=== PATIENT | female | born 1995 | race Caucasian/White ===

== ENCOUNTER 2020-06-22 14:55 | Outpatient (RCR) | payer OTHER, SELFPAY ==
[2020-06-04 15:08] VITALS: BP 101/55; PULSE 101
[2020-06-10 16:38] VITALS: BP 113/57; PULSE 92
[2020-06-22 15:23] VITALS: BP 108/66; PULSE 103
== END 2020-07-22 07:38 | disposition home or self-care (01) ==
LOC: ANHOBOP 14:55
PROVIDERS: PCP Family Medicine; Visit Provider Obstetrics & Gynecology
DX: O24.419 Gestational diabetes mellitus in pregnancy, unspecified control (principal); O09.293 Supervision of pregnancy with other poor reproductive or obstetric history, third trimester; Z3A.32 32 weeks gestation of pregnancy; Z3A.33 33 weeks gestation of pregnancy; Z3A.35 35 weeks gestation of pregnancy
CPT/HCPCS: 59025

== ENCOUNTER 2020-07-18 09:05 | Outpatient (CLI) | payer OTHER, SELFPAY ==
[2020-07-18 09:41] LABS: Hematocrit 35.5 % (37.0-47.0); Hemoglobin 11.8 g/dL (12.0-15.0); Immature Platelet Fraction Pct 8.2 % (0.9-11.2); Mean Corpuscular HGB Conc 33.2 g/dl (32-36); Mean Corpuscular Hemoglobin 27.8 pg (26-34); Mean Corpuscular Volume 83.5 fl (80-100); Mean Platelet Volume 11.8 fl (7.4-10.4); Platelet Count Result 113 k/mm3 (150-375); Red Blood Count 4.25 M/mm3 (4.2-5.4); Red Cell Distribution Width 13.4 % (11.5-14.5); White Blood Count 7.2 K/mm3 (4.5-10.0)
[2020-07-19 14:22] LABS: Rapid Plasma Reagin Non-Reactive (NonReactive)
== END 2020-07-18 09:06 | disposition home or self-care (01) ==
PROVIDERS: PCP Family Medicine; Visit Provider Obstetrics & Gynecology
DX: Z01.812 Encounter for preprocedural laboratory examination (principal)
CPT/HCPCS: 36415; 85027; 85055; 86592; 86900; 86901

== ENCOUNTER 2020-07-19 05:31 | Inpatient (IN) | payer OTHER, SELFPAY ==
--- NOTE | 2020-07-03 15:16 | PC.NURSE ---
VERIFIED WITH OR SCHEDULE AND PATIENT--C/S WITH TUBAL LIGATION ON 07/19 AT 0730 PATIENT INSTRUCTED TO HAVE PRE-OP LABS DRAWN THE DAY BEFORE SURGERY PATIENT INSTRUCTED NOTHING TO EAT OR DRINK AFTER MIDNIGHT THE NIGHT BEFORE SURGERY AND TO BE IN OB 2 HOURS BEFORE SURGERY--PATIENT VERBALIZED HER UNDERSTANDING
[2020-07-19] VITALS (24 sets, daily range): BP systolic 79–114; BP diastolic 43–78; PULSE 69–105; RESP 12–16; TEMP 36.1–36.8; O2SAT 99–100; BMI 34.2
[2020-07-19] MEDS: LACTATED RINGERS 1,000 ML 125 ML IV CONT ×2 (06:01→06:44)
--- NOTE | 2020-07-19 06:24 | LDADM ---
This patient, Ashley Rodney, was admitted to Labor/Delivery/Recovery 120 on 07/19/20 at 05:31. Plans for labor, pain management and were discussed with patient. Patient/family oriented to hospital policies and general routines including ID bracelet, bed and alarms, visiting hours, pain management, procedures, bathroom and other care routines, personal items, smoking policy, room service/diet and guest tray routines, security routines, and visiting hours. Patient/Family are encouraged to report perceived risks to care and to ask questions if they do not understand what they are told or what they should do. See OBIX for further documentation.
--- NOTE | 2020-07-19 06:54 | WPDANESEPPF ---
Anes - Initial Pre Proc Eval Procedure: Operation Date: 07/19/20 07:30 Proposed Procedures p Repeat Section With Bilateral Tubal Ligation - Donaldo Castellanos MD Date/Time: 07/19/20 06:54 Surgeon: Donaldo Castellanos MD Pre Op Diagnosis: Repeat Patient Data Age: 25 Gender: F Height: 5 ft 2 in Weight: 85 kg Last Vital Signs Pulse 105 H 07/19/20 06:16 BP 100/67 07/19/20 06:16 Allergies Allergy/AdvReac Type Severity Reaction Status Date / Time No Known Allergies Allergy Verified 07/03/20 15:02 Home Medications Medication Instructions Recorded Confirmed Type PNV cmb#95-ferrous fumarate-FA 1 tablet PO DAILY 06/22/20 07/19/20 History [] aspirin [Aspir-81] 162 mg PO DAILY 06/22/20 07/19/20 History insulin NPH isoph U-100 human 14 unit SUBCUT HS 06/22/20 07/19/20 History [Humulin N NPH U-100 Insulin] Patient hx anesthesia problems: none Family hx anesthesia problems: none PMFSH Past Medical History Medical History (Updated 07/19/20 @ 06:54 by Rasta Vora MD) Gestational diabetes Obesity Family History Family History Grandparent Diabetes mellitus Social History Social History Smoking status: Never smoker Substance use: never Spiritual care concerns: No Anes - Eval Final PreProcedure Day of Procedure 07/19/20 06:54 Patient weight: obese Heart: regular rate and rhythm Lungs: clear to auscultation Airway: Mallampati scale class II Neurological: alert and oriented Last oral intake: >/= 8 hours ASA classification: III Emergent: no Anesthetic plan: proceed Anesthesia type and monitoring: regional spinal and standard monitoring Informed Consent: The patient's anesthetic plan and its attendant risks and benefits were discussed with the patient/family/POA. Questions were solicited and answers provided to the satisfaction of the patient/family/POA.
--- NOTE | 2020-07-19 07:10 | PM.IMHP ---
H&P: HPI History of Present Illness Date/Time: 07/19/20 07:10 25-year-old 3 para 04/05/2000 presents at 39 weeks for repeat delivery. has been complicated by gestational diabetes for which she take insulin at night otherwise no issues. Also desires permanent sterilization which we have discussed regarding her tubal ligation the permanence failure rate increase risk of ectopic and regret she states good understanding and desires to proceed. Chief Complaint: Review of Systems Review of Systems: All systems reviewed & are unremarkable except as noted in HPI and below PMFSH Past Medical History Medical History Gestational diabetes Obesity Family History Family History Grandparent Diabetes mellitus Social History Social History Smoking status: Never smoker Substance use: never Spiritual care concerns: No Meds Home Medications and Allergies Home Medications Medication Instructions Recorded Confirmed Type PNV cmb#95-ferrous fumarate-FA 1 tablet PO DAILY 06/22/20 07/19/20 History [] aspirin [Aspir-81] 162 mg PO DAILY 06/22/20 07/19/20 History insulin NPH isoph U-100 human 14 unit SUBCUT HS 06/22/20 07/19/20 History [Humulin N NPH U-100 Insulin] Allergies Allergy/AdvReac Type Severity Reaction Status Date / Time No Known Allergies Allergy Verified 07/03/20 15:02 Vital Signs Vital Signs - 24 hr 07/19/20 05:56 07/19/20 06:02 07/19/20 06:16 Pulse Rate 91 86 105 H Blood Pressure 102/71 103/78 100/67 Exam Const: General: cooperative and healthy appearing Resp: Effort & Inspection: normal respiratory effort Auscultation: clear to auscultation bilaterally Cardio: Rate: regular rate Rhythm: regular rhythm GI: Auscultation: normal bowel sounds : Bimanual exam- vagina & uterus: enlarged ( Fundal height 40cm heart tones 140) Assessment and Plan Assessment and plan (1) 39 weeks gestation of : Code(s): Z3A.39 - 39 weeks gestation of Status: Acute (2) Previous delivery affecting : Code(s): O34.219 - Maternal care for unspecified type scar from previous delivery Status: Acute (3) Gestational diabetes: Code(s): O24.419 - Gestational diabetes mellitus in , unspecified control Status: Acute (4) Encounter for female sterilization procedure: Code(s): Z30.2 - Encounter for sterilization Status: Acute Additional Plan 1. Proceed with low-transverse section 2. Proceed with bilateral tubal ligation.
--- NOTE | 2020-07-19 07:13 | WPDHPUPDATE1 ---
History and Physical Update Update Date/Time: 07/19/20 07:13 History and Physical has been reviewed, including an updated exam of the patient. There are NO changes in the patient's condition. Risks, benefits, and alternatives have been discussed and questions answered. Patient agrees to proceed with procedure.
--- NOTE | 2020-07-19 08:14 | PM.OBPRVD ---
OB - Delivery Note Procedure Procedure: Procedures Operation Date: 07/19/20 07:30 <No data on this case meets the specified criteria> events: Gestational Diabetes Route of delivery: ( with bilateral tubal ligation) Specimen: Yes Quantitative Blood Loss (ml): 395 Anesthesia type: Spinal Disposition: PACU Narrative: patient prepped and draped in usual manner for this procedure. Pfannenstiel incision was made which was carried down to fascia which was then extended bilaterally the length of the skin incision. Superiorly and inferiorly dissected away from the rectus muscles and the peritoneum was readily entered. Bladder flap was developed uterus was scored and vertex was delivered with nuchal cord noted and reduced. Rest of baby was delivered without difficulty cord clamped cut and placenta removed manually. Uterus was cleared of membranes and clots and closed using 0 Monocryl in a running interlocking manner. Uterine incision was hemostatic uterus then was firm as well. Bilaterally the tubes were grasped Ely clamp doubly ligated and the portion of the tube was removed. Uterus was returned to the abdomen gutters were cleared of serosanguineous fluid and clots and the tubal segments were noted and were intact and hemostatic. Fascia was approximated using 0 Vicryl from left angle midline right angle to midline with good approximation hemostasis noted. Subcutaneous tissue approximated 0 plain suture and artur used to approximate the skin edges with good approximation and hemostasis noted. This point seizure was considered terminated with immediate postoperative condition of mother and baby both excellent. [place] Baby Weeks of gestation at delivery: 39 Infant gender: Female Weight (pounds): 8 Weight (ounces): 8 score one minute: 9 score five minutes: 9
--- NOTE | 2020-07-19 12:25 | PC.NURSE ---
Mother called out for assist with feeding. Consulted with patient, mother reports she breast and bottle fed last infant and plans the same for this . Mother will put infant to breast each feeding then supplement after. Once mother's milk is well established she will also pump and bottle feed. Discussed stimulation/empting of breast and milk supply. Reviewed nipple care of lanolin. Reviewed infant feeding cues, frequencies, duration of feedings, feeding elimination flow sheet, and signs of adequate intake. Demonstrated stimulation techniques to wake for feeding. Assisted with infant to breast. Reviewed positioning/alignment in cross cradle, holding breast in U hold and guided asymmetrical latch on. was able to latch within a few attempts. Infant nursed eagerly, with steady draws and frequent swallowing noted. Reviewed signs of a correct latch, effective nursing and suck swallow ratio. was able to maintain latch. Mother reported tenderness at times, had slipped to shallow latch. Demonstrated how to adjust latch more deeply while feeding. Mother quickly reports she can feel is latched more deeply and has minimal tenderness. has nasal congestion and is on and off during feeding, reporting to primary RN. Suggested to stimulate infant while feeding to keep infant awake and nursing effectively for increased stimulation and increased intake. Instructed mother to call out for RN assistance if she is unable to latch infant for feeding or she has discomfort with nursing.
[2020-07-19] MEDS: HYDROcodone/acetaminophen (*CRX) 5-325 MG TABLET 1 TAB PO (14:17)
[2020-07-19] MEDS: SIMETHICONE 80 MG TAB.CHEW PO ×2 (14:18→21:11)
[2020-07-19] MEDS: IBUPROFEN 600 MG TABLET PO ×2 (14:18→21:11)
[2020-07-20] VITALS (7 sets, daily range): BP systolic 90–121; BP diastolic 57–68; PULSE 78–106; RESP 16–18; TEMP 36.2–36.8; O2SAT 95–98
[2020-07-20] MEDS: HYDROcodone/acetaminophen (*CRX) 5-325 MG TABLET 1 TAB PO ×2 (02:23→10:10)
[2020-07-20 06:23] LABS: Basophils Percent Auto 0.4 % (0.2-1.2); Eosinophils Absolute Auto 0.1 K/mm3 (0-0.3); Eosinophils Percent Auto 1.7 % (0-4.4); Hematocrit 34.1 % (37.0-47.0); Hemoglobin 11.3 g/dL (12.0-15.0); Immature Granulocyte Absolute 0.03 K/mm3 (0.00-0.031); Immature Granulocyte Percent A 0.4 % (0-0.5); Immature Platelet Fraction Pct 8.4 % (0.9-11.2); Lymphocytes Absolute Auto 1.09 K/mm3 (0.9-3.2); Lymphocytes Percent Auto 13.2 % (18.3-44.2); Mean Corpuscular HGB Conc 33.1 g/dl (32-36); Mean Corpuscular Hemoglobin 28.3 pg (26-34); Mean Corpuscular Volume 85.3 fl (80-100); Mean Platelet Volume 11.9 fl (7.4-10.4); Monocytes Absolute Auto 0.7 K/mm3 (0.1-0.6); Monocytes Percent Auto 8.7 % (2.6-8.5); Neutrophils Absolute Auto 6.2 K/mm3 (1.3-6.7); Neutrophils Percent Auto 75.6 % (45.5-73.1); Platelet Count Result 114 k/mm3 (150-375); Red Cell Distribution Width 13.3 % (11.5-14.5); White Blood Count 8.3 K/mm3 (4.5-10.0)
--- NOTE | 2020-07-20 06:43 | P.DS_ITS ---
DS: Admitting Diagnosis Admitting Diagnosis Admitting Diagnosis: DS: Discharge Diagnosis Discharge Diagnosis (1) Previous delivery affecting : Code(s): O34.219 - Maternal care for unspecified type scar from previous delivery Status: Acute OB - DS: Summary OB Procedures : NST and Ultrasound OB Procedures Intrapartum: and Tubal ligation OB Procedures: : None Peripartum Data Procedures: Procedures Operation Date: 07/19/20 07:30 Actual Procedures Side Surgeon p Repeat Section With Bilateral Tubal Ligation Not Applicable Donaldo Castellanos MD Time Spent with Patient Time attestation: Total time spent providing and/or coordinating discharge services: DS: Data Data Completed and Pending Pending studies at discharge: Pending at discharge 07/19/20 07:53 Surgical [PTH] Routine Surgical [PTH] Routine Labs on day of discharge: Labs from last 24 hours 07/20/20 05:54 WBC 8.3 RBC 4.00 L Hgb 11.3 L Hct 34.1 L MCV 85.3 MCH 28.3 MCHC 33.1 RDW 13.3 Plt Count 114 L MPV 11.9 H Immature Gran % (Auto) 0.4 Neut % (Auto) 75.6 H Lymph % (Auto) 13.2 L Harney % (Auto) 8.7 H Eos % (Auto) 1.7 Baso % (Auto) 0.4 Lymph # (Auto) 1.09 Harney # (Auto) 0.7 H Eos # (Auto) 0.1 Baso # (Auto) 0.0 Abs Immat Gran (auto) 0.03 Absolute Neuts (auto) 6.2 Absolute Nucleated RBC 0.0 Nucleated RBC % 0.0 % Immature Plt Fraction 8.4 Discharge Plan Discharge Discharging Clinician: Donaldo Castellanos Anticipated Discharge Date/Time: 07/21/20 09:43 Patient Disposition: Home, Self-Care Activity: as tolerated Diet: as tolerated Wound Care Instructions: incision open to air Discharge Instructions: office staple removal wednesday (ok to remove wednesday if hospital visit that day) Patient Instructions: Antibiotic Form Stand Alone Forms: General Discharge Information Follow-up/Referrals: Donaldo Castellanos MD [Physician] - 3 Weeks Discharge Medications: New hydrocodone-acetaminophen 5-325 mg Tablet 1 tablet PO Q6H PRN (Reason: Moderate Pain (4-6)) Qty: 20 RF: 0 ibuprofen 600 mg Tablet 600 mg PO Q6H PRN (Reason: Cramping) Qty: 30 RF: 0 Continued PNV cmb#95-ferrous fumarate-FA [] 28 mg iron- 800 mcg Tablet 1 tablet PO DAILY RF: 0 Discontinued aspirin [Aspir-81] 81 mg Tablet,Delayed Release (Dr/Ec) 162 mg PO DAILY RF: 0 Humulin N NPH U-100 Insulin 100 unit/mL Suspension 14 unit SUBCUT HS RF: 0 Date of admission: 07/19/20 05:31 Primary Care Provider: Sukhjinder,[facility] Admitting Provider: Donaldo Castelalnos Attending physician on admission: Donaldo Castellanos Condition: Stable
[2020-07-20] MEDS: IBUPROFEN 600 MG TABLET PO ×2 (10:09→17:32)
[2020-07-20] MEDS: MULTIVIT/MIN/PREN/FOL AC/IRON TABLET 1 TAB PO (10:10)
[2020-07-20] MEDS: SIMETHICONE 80 MG TAB.CHEW PO ×2 (10:10→16:03)
[2020-07-20] MEDS: DOCUSATE SODIUM 100 MG CAPSULE PO ×2 (10:10→16:03)
--- NOTE | 2020-07-20 10:34 | WPDANLDPN2 ---
Anes-Prog Note L&D Date/Time: 07/20/20 10:34 Comfortable throughout: section Neuraxial method: spinal Epidural/Spinal procedure site: clean & non-tender Neuro status: Neuro function grossly intact. Cardiovascular status: normal Respiratory status: normal Airway patency: baseline Mental status: baseline Post-Op hydration status: normal Vital Signs: Last Vital Signs Temp 36.6 C 07/20/20 05:45 Pulse 78 07/20/20 05:45 Resp 16 07/20/20 05:45 BP 99/62 L 07/20/20 05:45 Pulse Ox 96 07/20/20 05:45 Pain score (VAS): 0 I/O: Intake & Output 07/19/20 07/20/20 07/20/20 23:59 07:59 15:59 Intake Total 1640 740 Output Total 1100 825 Balance 540 -85 Post-procedural complaints: none Patient feedback: Patient satisfied with anesthetic care.
--- NOTE | 2020-07-20 10:34 | WPDANLDNPN2 ---
Anes-Prog Note L&D-Neuraxial Date/Time: 07/20/20 10:34 Neuraxial medications: intrathecal PF morphine Opiod-related complaints: none Patient feedback: Patient satisfied with post-operative pain management.
--- NOTE | 2020-07-21 03:03 | PC.NURSE ---
07/21/2020 at 2330. When I took baby back out to mother I asked her if she would like something for pain. Ashley replied, No, I just want to get some sleep. I asked the patient to call out if she needs something for pain or assistance of any kind. Ashley stated understanding. Ashley has not called out for pain medication or assistance up to this time.
--- NOTE | 2020-07-21 06:34 | PC.NURSE ---
07/21/2020 at 0530 Patient viewed the discharge video Mother & Baby Care, The First Two Weeks . Patient was given the opportunity and encouraged to ask questions. Patient verbalized understanding of information shared and has been given the mother/baby guide for home reference.
[2020-07-21] MEDS: IBUPROFEN 600 MG TABLET PO (07:07)
[2020-07-21] MEDS: HYDROcodone/acetaminophen (*CRX) 5-325 MG TABLET 1 TAB PO (07:07)
[2020-07-21] MEDS: MULTIVIT/MIN/PREN/FOL AC/IRON TABLET 1 TAB PO (07:08)
[2020-07-21] MEDS: DOCUSATE SODIUM 100 MG CAPSULE PO (07:09)
[2020-07-21] MEDS: SIMETHICONE 80 MG TAB.CHEW PO (07:09)
[2020-07-21 08:00] VITALS: BP 121/68; PULSE 104; RESP 18; TEMP 36.6
--- NOTE | 2020-07-21 08:00 | PC.NURSE ---
Assessment done on 07/20/20 at 0800 by Jana Rodgers was wrong date. Assessments done on 05/23/20 at 0800 per Jana Rodgers RN. Pt. doing well. Anxious for discharge. FOB at side.
--- NOTE | 2020-07-21 08:37 | PC.NURSE ---
Self care and infant care discharge instructions given to pt. including follow up visit date and time. Pt. verbalized understanding. No questions or concerns voiced. Very pleasant and cooperative.
--- NOTE | 2020-07-21 09:17 | PC.NURSE ---
Pt. discharged with staple remover and instructed to take with her when she sees Dr. Castellanos this Wednesday. Pt. verbalized understanding.
[2020-07-22 10:34] VITALS: BP 111/68; PULSE 98; RESP 20; TEMP 36.4; O2SAT 98
--- NOTE | 2020-07-27 09:00 | PM.OBDSVD ---
DS: Admitting Diagnosis Admitting Diagnosis Admitting Diagnosis: OB - DS: Summary OB Procedures : None OB Procedures Intrapartum: and Tubal ligation OB Procedures: : None Peripartum Data Procedures: Procedures Operation Date: 07/19/20 07:30 Actual Procedures Side Surgeon p Repeat Section With Bilateral Tubal Ligation Not Applicable Donaldo Castellanos MD Time Spent with Patient Time attestation: Total time spent providing and/or coordinating discharge services: DS: Data Data Completed and Pending Completed studies during hospitalization: Pending at discharge 07/19/20 07:53 Surgical [PTH] Routine Surgical [PTH] Routine Discharge Plan Discharge Consulting providers: Rasta Vora Discharging Clinician: Donaldo Castellanos Anticipated Discharge Date/Time: 07/21/20 09:43 Patient Disposition: Home, Self-Care Activity: as tolerated Diet: as tolerated Wound Care Instructions: incision open to air Discharge Instructions: office staple removal wednesday (ok to remove wednesday if hospital visit that day) Education: Mom and Baby Guide Given to: Mother Follow-Up: Call your delivering provider's office for an appointment to be seen in: Return to office July 24 for staple removal. Mom and baby [facility] for the follow-up appointment. Appointment Date/Time: Wednesday July 22, 2020 at 11:00 am What to expect at your follow-up visit: Blood Pressure Check Physical Assessment Call [phone] if you are unable to keep your appointment time. BREAST CARE: * Wear a snug supportive bra. * For engorgement discomfort: Breast Feeding: * Apply warm moist washcloths * Express milk as needed to relieve engorgement * Wear loose clothing Bottle Feeding: * May apply ice packs * For sore nipples: * Identify correct latch-on * Apply warm moist washcloths before and after nursing * Air dry nipples after nursing * May apply Lansinoh cream to nipples ABDOMINAL INCISION: (if applicable) * Allow incision to air dry * Do NOT use lotions for powders on your incision * When showering, allow soap and water to run over the incision, but do not wash incision * Until bleeding stops, use your jennifer bottle after urinating * Change your pad frequently throughout the day ACTIVITY: * Rest as much as possible. * Do not exercise or lift anything heavier than your baby (such as laundry or other children.) * Avoid stairs or driving as much as possible. * Do not put anything into the vagina. No douching, tampons, or sexual activity until seen by physician. NOTIFY PHYSICIAN IF YOU HAVE ANY QUESTIONS OR IF ANY OF THE FOLLOWING SYMPTOMS OCCUR: * If your incision becomes red, swollen, or more painful than what you have experienced in the hospital. * If your vaginal bleeding becomes foul smelling. * If your vaginal bleeding becomes more heavy than a period or if your bleeding changes from pink to bright red. However, you may pass an occasional walnut-sized clot once or twice for the first week . * If you experience a sharp, shooting pain in you calves. * If you discover a hard, reddened area on your breast or if you experience flu-like symptoms. DIET: * Eat regular, well-balanced meals. * Drink plenty of fluids daily. If , drink to thirst. Patient Instructions: Antibiotic Form Stand Alone Forms: General Discharge Information Follow-up/Referrals: Donaldo Castellanos MD [Physician] - 3 Weeks Discharge Medications: New hydrocodone-acetaminophen 5-325 mg Tablet 1 tablet PO Q6H PRN (Reason: Moderate Pain (4-6)) Qty: 20 RF: 0 ibuprofen 600 mg Tablet 600 mg PO Q6H PRN (Reason: Cramping) Qty: 30 RF: 0 Continued PNV cmb#95-ferrous fumarate-FA [] 28 mg iron- 800 mcg Tab
== END 2020-07-21 10:03 | disposition home or self-care (01) | DRG 785 ==
LOC: ANHLDR 05:36 → ANHOB2 11:19
PROVIDERS: Admitting Provider Obstetrics & Gynecology; PCP Family Medicine; Visit Provider Obstetrics & Gynecology
PROC: 10D00Z1 Extraction of Products of Conception, Low, Open Approach (ICD-10-PCS; CPT 59514; principal; 2020-07-19 07:30)
DX: O34.211 Maternal care for low transverse scar from previous cesarean delivery (principal); O24.424 Gestational diabetes mellitus in childbirth, insulin controlled; Z3A.39 39 weeks gestation of pregnancy; Z37.0 Single live birth; Z30.2 Encounter for sterilization
CPT/HCPCS: 36415; 85025; 85055; 88302; 88307; A9270; J0131; J2274; J2370; J2405; J2590; J7120

== ENCOUNTER 2023-02-13 08:42 | Emergency (ER) | payer OTHER, SELFPAY ==
[2023-02-13 08:55] VITALS: BP 113/70; PULSE 88; RESP 16; TEMP 36.7; O2SAT 100
--- NOTE | 2023-02-13 09:19 | ED.EYEPROB ---
HPI - Eye Problem General Chief complaint: Eye Problems Stated complaint: Eyes Irritation Time Seen by Provider: 02/13/23 09:14 Source: patient and RN notes reviewed Mode of arrival: ambulatory Limitations: no limitations History of Present Illness HPI Narrative: Patient presents today complaining of discharge from bilateral eye since last night with burning and crusting this morning. Denies vision changes, foreign body sensation. She does not wear contacts. She has tried no [id number] interventions prior to arrival. Denies recent illness. Related Data Allergies Allergy/AdvReac Type Severity Reaction Status Date / Time No Known Allergies Allergy Verified 12/21/22 15:11 Review of Systems Review of Systems: CONSTITUTIONAL: Denies body aches, fever, chills, or sweats. EYES: Denies visual changes. + bilateral eye redness, burning, drainage ENT: Denies rhinorrhea, congestion, sore throat, or otalgia. CARDIOVASCULAR: Denies chest pain, palpitations, or edema. RESPIRATORY: Denies cough or dyspnea. GASTROINTESTINAL: Denies abdominal pain, nausea, vomiting, or diarrhea. GENITOURINARY: Denies dysuria or hematuria. SKIN: Denies rash, itching, or wounds. MUSCULOSKELETAL: Denies back pain, joint pain, or myalgia. NEUROLOGIC: Denies headache, numbness, tingling, or weakness. PSYCH: Denies depression or anxiety. [facility] Past Medical History Medical History Abnormal Pap smear of cervix 02/16/2017 ascus -hpv Anxiety Asthma Bipolar 1 disorder Depression Gestational diabetes Gestational diabetes History of demise, not currently @ 37 weeks Obesity Surgical History Surgical History H/O tubal ligation (07/19/20) History of 12/04/16 primary elective c/s--prior shoulder dystocia 07/19/20 rpt c/s History of tonsillectomy 05/19/18 Family History Family History Grandparent Diabetes mellitus paternal grandfather paternal grandmother Malignant neoplasm of prostate maternal grandfatehr Neoplasm of bone marrow maternal grandfather Sibling Leukemia sister 2x Father Alcohol abuse Social History Social History Smoking status: Never smoker Second hand tobacco smoke exposure: No Alcohol intake: current Alcohol use details: 1 a month ? 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 Please see nursing chart for further information. There is no relevant family history pertinent to the presenting complaint Exam Narrative: GENERAL: Well-appearing, well-nourished, and in no acute distress. HEAD: Normocephalic, atraumatic. EYES: EOMI. PERRL. Moderate bilateral injected conjunctiva. No current active drainage. Lids and lashes normal. ENT: Mucous membranes pink and moist. NECK: Normal AROM. CHEST: No respiratory distress. EXTREMITIES: Normal range of motion. No edema. SKIN: Warm, dry, no rash.
== END 2023-02-13 09:32 | disposition home or self-care (01) ==
PROVIDERS: Emergency Provider Nurse Practitioner; PCP Family Medicine
DX: H10.89 Other conjunctivitis (principal)
CPT/HCPCS: 99213; G0463

== ENCOUNTER 2023-03-18 18:44 | Emergency (ER) | payer OTHER, SELFPAY ==
--- NOTE | 2023-03-18 18:45 | ED.URI ---
HPI - URI/Sore Throat General Chief Complaint: Upper Respiratory Infection Stated Complaint: Bodyaches Time Seen by Provider: 03/18/23 18:45 Source: patient Mode of arrival: ambulatory Limitations: no limitations History of Present Illness HPI Narrative: Bárbara is a 27-year-old female patient presenting to the clinic today with complaints of body aches, cough, and nasal congestion days. Symptoms started on Wednesday morning. Son is positive for influenza B. MD elicited complaint: cough, nasal congestion and other (Body aches) Related Data Allergies Allergy/AdvReac Type Severity Reaction Status Date / Time No Known Allergies Allergy Verified 03/18/23 18:57 Review of Systems Review of Systems: Pertinent positives per HPI. Patient denies any fever, chills, rash, headache, visual changes, dizziness, cough, shortness of breath, chest pain, palpitations, nausea, vomiting, diarrhea, constipation, abdominal pain, or any urinary issues. [facility] Past Medical History Medical History Abnormal Pap smear of cervix 02/16/2017 ascus -hpv Anxiety Asthma Bipolar 1 disorder Depression Gestational diabetes Gestational diabetes History of demise, not currently @ 37 weeks Obesity Surgical History Surgical History H/O tubal ligation (07/19/20) History of 12/04/16 primary elective c/s--prior shoulder dystocia 07/19/20 rpt c/s History of tonsillectomy 05/19/18 Family History Family History Grandparent Diabetes mellitus paternal grandfather paternal grandmother Malignant neoplasm of prostate maternal grandfatehr Neoplasm of bone marrow maternal grandfather Sibling Leukemia sister 2x Father Alcohol abuse Social History Social History Smoking status: Never smoker Second hand tobacco smoke exposure: No Alcohol intake: current Alcohol use details: 1 a month ? 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 There is no relevant family history pertinent to the patient complaint. Exam Narrative: General: Well-developed, well nourished, in no apparent distress Head: Normocephalic, atraumatic Eyes: Pupils equally round and reactive to light bilaterally, EOM intact, sclera and conjunctive clear, no discharge, lids normal Ears: TMs intact and clear, ear canals clear, no drainage, grossly hearing normal. Nose: Nares patent, clear nasal discharge, no inflammation, no sinus tenderness. Mouth: Oral pharynx without lesions or masses, good dentition, MMM. Neck: Supple, trachea midline, no enlargement of anterior or posterior cervical nodes, no thyroid masses or goiter palpable. Cardio: Regular rate and rhythm, s1 and s2 normal, no murmur appreciated. Resp: Clear to auscultation bilaterally, no rhonchi, rales, wheezing or rubs Course Course Emergency Course: Portions of this record may have been created with voice recognit
[2023-03-18 18:55] VITALS: BP 118/66; PULSE 116; RESP 18; TEMP 37.9; O2SAT 100
== END 2023-03-18 19:09 | disposition home or self-care (01) ==
PROVIDERS: Emergency Provider Nurse Practitioner Family; PCP Family Medicine
DX: J10.1 Influenza due to other identified influenza virus with other respiratory manifestations (principal); Z20.822 Contact with and (suspected) exposure to COVID-19
CPT/HCPCS: 87426; 87804; 99213; C9803; G0463

== ENCOUNTER 2024-01-08 08:39 | Outpatient (CLI) | payer OTHER, SELFPAY ==
--- NOTE | ~2024-01-08 | XR_ITS ---
EXAMINATION: XR elbow RT min 3V DATE: 01/08/2024 09:13 INDICATION: Right elbow pain and bruising TECHNIQUE: Anteroposterior, two oblique and lateral views of the right elbow were obtained. COMPARISON: None. FINDINGS: Alignment is normal. Subtle linear lucency extending across the head of the right ulna consistent wit h nondisplaced intra-articular fracture. Fracture involves approximately 25% of the articular surface area. Joint spaces are normal. There is a small joint effusion with displacement of the anterior but not the posterior fat pad. Soft tissues are otherwise unremarkable. IMPRESSION: 1. Nondisplaced intra-articular fracture of the right radial head with small elbow joint effusion. Reviewed, dictated and finalized at location A. IMPRESSION: 1. Nondisplaced intra-articular fracture of the right radial head with small el bow joint effusion.
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
== END 2024-01-08 08:40 | disposition home or self-care (01) ==
PROVIDERS: PCP Family Medicine
DX: M47.812 Spondylosis without myelopathy or radiculopathy, cervical region (principal); S52.124A Nondisplaced fracture of head of right radius, initial encounter for closed fracture; V89.2XXA Person injured in unspecified motor-vehicle accident, traffic, initial encounter; S13.4XXA Sprain of ligaments of cervical spine, initial encounter
CPT/HCPCS: 72040; 73080

== ENCOUNTER 2025-02-17 07:57 | Outpatient (CLI) | payer OTHER, SELFPAY ==
--- NOTE | ~2025-02-17 | US_ITS ---
Examination: US abdomen complete Clinical History: Flank pain, right side . Comparison: None Technique: Complete abdominal sonography Findings: Liver: Normal size. Normal echotexture. No intrahepatic biliary ductal dilatation. Normal hepatopedal flow main portal vein. Common duct: Normal caliber, 4 mm. Gallbladder: No stones. No wall thickening. No pericholecystic fluid. Spleen: Unremarkable. Pancreas: Unremarkable. Kidneys: Unremarkable. Aorta: No aneurysmal dilatation. Retrohepatic IVC: Unremarkable. IMPRESSION: 1. No acute findings. Reviewed, dictated and finalized at location R. AL CARE TECHNICIAN IMPRESSION: 1. No acute findings.
--- NOTE | ~2025-02-17 | XR_ITS ---
EXAM/PROCEDURE: XR abdomen/kub 1V HISTORY: Flank pain , right side COMPARISON: None available. TECHNIQUE: KUB FINDINGS: 5.4 mm stone overlies the mid pole the right kidney. Punctate calcification also present overlying the upper and midpole regions. No definite left-sided kidney stones. Calcifications in the lower pelvis appear to represent phleboliths. The remainder the exam appears normal. IMPRESSION: Right-sided stones suggestive of right-sided nephrolithiasis. Reviewed, dictated and finalized at location A. LLURGY LABORATORY TECHNICIAN
== END 2025-02-17 07:58 | disposition home or self-care (01) ==
PROVIDERS: PCP Family Medicine; Visit Provider Family Medicine
DX: R10.A1 Flank pain, right side (principal)
CPT/HCPCS: 74018; 76700